=== PATIENT | female | born 1990 | race Caucasian/White ===

== ENCOUNTER → 2024-08-14 16:00 | Outpatient (BNVA) | payer BC, SELFPAY | PROVIDERS: Visit Provider Nurse Practitioner | DX: J02.9 Acute pharyngitis, unspecified (principal) | CPT/HCPCS: 87880 ==

== ENCOUNTER 2024-10-13 22:13 | Emergency (ER) | payer BC, SELFPAY ==
[2024-10-13 22:15] VITALS: PULSE 90; O2SAT 97
[2024-10-13 22:19] VITALS: BP 139/96; PULSE 90; O2SAT 97
--- NOTE | 2024-10-13 22:20 | CTR_ITS ---
PROCEDURE INFORMATION: Exam: CT Head Without And With Contrast Exam date and time: 10/13/2024 10:38 PM Age: 33 years old Clinical indication: Stroke-like symptoms; Altered mental status/memory loss and dizziness/giddiness and speech disturbance and vomiting; Additional info: Known tumor, R/O bleed first TECHNIQUE: Imaging protocol: Computed tomography of the head without and with contrast. Radiation optimization: All CT scans at this facility use at least one of these dose optimization techniques: automated exposure control; mA and/or kV adjustment per patient size (includes targeted exams where dose is matched to clinical indication); or iterative reconstruction. Contrast material: OMNI 350; Contrast volume: 75 ml; Contrast route: INTRAVENOUS (IV); COMPARISON: No relevant prior studies available. RADIATION DOSE METRICS: Total DLP (mGy-cm): 1969.78 FINDINGS: Brain: Large cystic and solid mass centered in the left basal ganglia. Geographic mass-effect on the adjacent parenchyma. Lesion spans about 3.6 cm x 3.6 cm x 3.4 cm. The medial, solid portion of the mass is well-circumscribed with some heterogeneity but predominantly hyperattenuating. The outer cystic portion of the mass demonstrates peripheral enhancement. [id number] midline shift about 4 mm. Shine matter and white matter interfaces are preserved. Cerebral ventricles: The bilateral temporal horns of the lateral ventricles are both slightly dilated, but no significant hydrocephalus. There is mass effect on the 3rd ventricle primarily. Paranasal sinuses: Visualized sinuses are unremarkable. No fluid levels. Mastoid air cells: Visualized mastoid air cells are well aerated. Bones: Unremarkable. No acute fracture. Soft tissues: Unremarkable. CT/CT head wo/w con [id number] IMPRESSION: 1. Cystic and solid intracranial neoplasm centered in the left basal ganglia with regional mass effect and midline shift changes as described. 2. Hyperattenuating solid portion of the mass may represent some internal hemorrhage, but the solid portion of the lesion maintains a circumscribed margin. 3. Early, minor hydrocephalus features. ASSESSMENT: ASPECTS ([place] Stroke Program Early CT Score) is 10.
[2024-10-13 22:21] VITALS: BP 139/96; PULSE 89; RESP 20; TEMP 36.6; O2SAT 98; BMI 26.9
--- NOTE | 2024-10-13 22:38 | ED_ITS ---
HPI - Neuro Symptoms/Deficit 2 General: Chief Complaint: Neuro Symptoms/Deficit Stated Complaint: tumor, vommiting, cant lift right side, Time Seen by Provider: 10/13/24 22:15 History of Present Illness: 33-year-old female with recently diagnos ed brain tumor. She was diagnosed at [facility] and sent to [facility] and treated by Dr. Soto. She was receiving steroids and they are planning on doing the surgery. She had had speech difficulties facial droop and right-sided weakness initially and those had improved and she was walking. They had sent her home today to finish out steroids and plan on surgery. I had made it almost home when suddenly she became very angry and her face started drooping and her right side went weak again and she vomited. Symptoms are present now. said this was very similar to what it was before they started the steroids. Related Data Home Medications Medication Instructions Recorded Confirmed propranolol 10 mg tablet 10 mg PO ONCE PRN 12/22/21 08/14/24 Previous Rx's Medication Instructions Recorded azithromycin 500 mg tablet 500 mg PO DAILY 5 days #5 tabs 08/14/24 Allergies Allergy/AdvReac Type Severity Reaction Status Date / Time Cephalosporins Allergy ALGY-Hives Verified 10/13/24 22:26 Penicillins Allergy ALGY-Hives Verified 10/13/24 22:26 Review of Systems 2 General: Reports: ROS unobtainable due to medical condition [facility] ED 2 PFSH: Social History Smoking and tobacco/nicotine status: never used tobacco/nicotine Physical Exam 2 Narrative: EXAM NARRATIVE: General: Alert, no acute distress. Skin: Warm, dry. Head: Normocephalic, atraumatic. Neck: Supple, trachea midline. Eye: Extraocular movements are intact. Ears, nose, mouth and throat: mucosa moist. Cardiovascular: Regular, Normal peripheral perfusion. Respiratory: Lungs are clear to auscultation, respirations are non-labored, breath sounds are equal, Symmetrical chest wall expansion. Gastrointestinal: Soft, Nontender, Non distended Musculoskeletal: Normal ROM, no deformity. Neurological: Patient has slurred speech difficulty speaking, right-sided facial droop and right-sided arm and leg weakness. Psychiatric: Cooperative, appropriate mood & affect. Course 2 Vital Signs: Vital signs: Vital Signs Temperature 97.8 F 10/13/24 22:21 Pulse Rate 73 10/13/24 23:37 Respiratory Rate 20 H 10/13/24 22:21 Blood Pressure 143/90 10/13/24 22:49 Pulse Oximetry 98 10/13/24 23:37 MDM - Neuro Symptoms/Deficit Medical Decision Making Medical decision making: Differential diagnosis for patient with focal neurologic deficit(s) includes but not limited to and based on the above HPI, review of systems and physical exam: ischemic stroke, hemorrhagic stroke and embolic stroke secondary to atrial fibrillation), TIA, Mann's palsey, metabolic encephalopathy with previous stroke. Orders placed to evaluate differential diagnosis based on the above differential, HPI and physical exam Lab Review: Laboratory results were reviewed and interpreted by myself the emergency room physician. Patient has some leukocytosis with a white count of 21,000. Likely secondary to steroids. No anemia. No renal failure. CT of the head shows a cystic solid neoplasm with mass effect and midline shift. There is a hyperattenuating solid portion of the mass that appears to be a new hemorrhage. I actually reviewed films that were taken at [facility] and this central area was not present at that time. I do believe this is an active bleed. Particularly given the rapid reonset of the patient's symptoms. Consultation: I spoke with Dr. Soto the neurosurgeon that is taking care of her at [facility]. He has recommended transfer ER to ER to [facility]. Consultation: I spoke with Dr. Mendoza at [facility] ER. She is excepting the patient ER to ER. Given the rapid onset of this and the nature of this being a bleed I believe this needs rapid transfer to [facility]. This will require air VAC. Assessment and plan: Brain mass Intracranial hemorrhage Right-sided weakness Aphasia ?10 mg IV Decadron and 2 g IV Keppra in the emergency room - Discussed findings and plan with patient and family. Answered any questions. - All laboratory values were reviewed and interpreted personally by myself, the ER physician - All imaging was reviewed and interpreted personally by myself, the ER physician. - Evaluation and treatment of this problem were appropriate in the emergency setting Lab Data 10/13/24 22:24 10/13/24 22:[address] 12/05/24 22:20 IMPRESSION: 1. Cystic and solid intracranial neoplasm centered in the left basal ganglia with regional mass effect and midline shift changes as described. 2. Hyperattenuating solid portion of the mass may represent some internal hemorrhage, but the solid portion of the lesion maintains a circumscribed margin. 3. Early, minor hydrocephalus features. ASSESSMENT: ASPECTS ([place] Stroke Program Early CT Score) is 10. Laboratory Results WBC 21.53 10^3/uL (3.29-11.43) H 10/13/24 22:24 RBC 4.69 10^6/uL (3.85-5.65) 10/13/24 22:24 Hgb 13.10 g/dL (11.27-16.99) 10/13/24 22:24 Hct 39.6 % (36-47) 10/13/24 22:24 MCV 84.4 fl (85-98) L 10/13/24 22:24 MCH 27.9 pg (27-33) 10/13/24 22:24 MCHC 33.1 g/dL (30-55) 10/13/24 22:24 RDW 13.0 % (12.1-15.1) 10/13/24 22:24 Plt Count 403 10^3/cmm (157-399) H 10/13/24 22:24 MPV 10.3 fL (7.4-10.4) 10/13/24 22:24 Neut % (Auto) 87.5 % 10/13/24 22:24 Lymph % (Auto) 6.5 % 10/13/24 22:24 Moody % (Auto) 5.3 % 10/13/24 22:24 Eos % (Auto) 0.0 % 10/13/24 22:24 Baso % (Auto) 0.1 % 10/13/24 22:24 Neut # (Auto) 18.84 10^3/uL (1.8-7.7) H 10/13/24 22:24 Lymph # (Auto) 1.4 10^3/uL (0.8-4.8) 10/13/24 22:24 Moody # (Auto) 1.1 10^3/uL (0.2-0.9) H 10/13/24 22:24 Eos # (Auto) 0.0 10^3/uL (0.0-0.8) 10/13/24 22:24 Baso # (Auto) 0.0 10^3/uL (0.0-0.1) 10/13/24 22:24 Nucleated RBC % (auto) 0 % 10/13/24 22:24 Nucleated RBCs # 0.0 /100WBC 10/13/24 22:24 Sodium 137 mmol/L (136-145) 10/13/24 22:24 Potassium 4.2 mmol/L (3.5-5.1) 10/13/24 22:24 Chloride 101 mmol/L (98-107) 10/13/24 22:24 Carbon Dioxide 24 mmol/L (22-29) 10/13/24 22:24 Anion Gap 16.2 (5-19) 10/13/24 22:24 BUN 13 mg/dL (6-20) 10/13/24 22:24 Creatinine 0.6 mg/dL (0.5-0.9) 10/13/24 22:24 GFR Calculation 113.8 mL/min (90-130) 10/13/24 22:24 Glucose 127 mg/dL (65-115) H 10/13/24 22:24 POC Glucose 127 mg/dL (70-110) H 10/13/24 22:31 Calculated Osmolality 286 mOsm/kg (285-295) 10/13/24 22:24 Calcium 9.7 mg/dL (8.5-10.5) 10/13/24 22:24 Total Bilirubin 0.3 mg/dL (0.15-1.2) 10/13/24 22:24 AST 17 U/L (0-32) 10/13/24 22:24 ALT 21 U/L (0-33) 10/13/24 22:24 Alkaline Phosphatase 92 U/L (35-105) 10/13/24 22:24 Total Protein 7.8 g/dL (6.6-8.7) 10/13/24 22:24 Albumin 4.7 g/dL (3.5-5.2) 10/13/24 22:24 Globulin 3.1 g/dL (1.3-4.6) 10/13/24 22:24 All radiology interpretation(s) finalized by discharge Discharge Plan Discharge Patient Disposition: Xfer Short-Term Hosp Clinical Impression: Intracranial mass, Intracranial hemorrhage, Right sided weakness, Aphasia Condition: Stable Coding Level of Care Code ED Client Experience Specialist for Eric Sheppard
[2024-10-13 22:40] LABS: Basophils % 0.1 %; Hematocrit 39.6 % (36-47); Lymphocytes # 1.4 10^3/uL (0.8-4.8); Lymphocytes % 6.5 %; Mean Corpuscular HGB Conc 33.1 g/dL (30-55); Mean Corpuscular Hemoglobin 27.9 pg (27-33); Mean Corpuscular Volume 84.4 fl (85-98); Mean Platelet Volume 10.3 fL (7.4-10.4); Monocytes # 1.1 10^3/uL (0.2-0.9); Monocytes % 5.3 %; Neutrophils # 18.84 10^3/uL (1.8-7.7); Neutrophils % 87.5 %; Nucleated Red Blood Cells % 0 %; Platelet Count 403 10^3/cmm (157-399); Red Blood Count 4.69 10^6/uL (3.85-5.65); White Blood Count 21.53 10^3/uL (3.29-11.43)
[2024-10-13] MEDS: iohexol 350 mg/mL 500 mL Btl (per mL) IV (22:42)
[2024-10-13 22:49] VITALS: BP 143/90; PULSE 86; O2SAT 100
[2024-10-13 23:01] LABS: Glucose Point of Care 127 mg/dL (70-110)
[2024-10-13 23:02] LABS: Alanine Aminotransferase 21 U/L (0-33); Albumin Level 4.7 g/dL (3.5-5.2); Alkaline Phosphatase 92 U/L (35-105); Anion Gap 16.2 (5-19); Aspartate Amino Transferase 17 U/L (0-32); Blood Urea Nitrogen 13 mg/dL (6-20); Calcium 9.7 mg/dL (8.5-10.5); Carbon Dioxide 24 mmol/L (22-29); Chloride 101 mmol/L (98-107); Creatinine Clr Calc Pharmacy 117.2051; Globulin 3.1 g/dL (1.3-4.6); Glomerular Filtration Rate 113.8 mL/min (90-130); Glucose 127 mg/dL (65-115); Osmolality Calculated 286 mOsm/kg (285-295); Potassium 4.2 mmol/L (3.5-5.1); Sodium 137 mmol/L (136-145); Total Bilirubin 0.3 mg/dL (0.15-1.2); Total Protein 7.8 g/dL (6.6-8.7)
[2024-10-13] MEDS: levETIRAcetam 2,000 MG/200 ML PREMIX 400 MG IV (23:10)
[2024-10-13] MEDS: dexamethasone 10 mg/mL INJ IVP (23:13)
[2024-10-13 23:37] VITALS: PULSE 73; O2SAT 98
[2024-10-13 23:54] VITALS: BP 120/87; PULSE 89; RESP 16; O2SAT 100
== END 2024-10-13 23:55 | disposition short-term general hospital (02) ==
PROVIDERS: Emergency Provider Emergency Medicine
DX: D49.6 Neoplasm of unspecified behavior of brain (principal); I62.9 Nontraumatic intracranial hemorrhage, unspecified; R47.01 Aphasia; R53.1 Weakness
CPT/HCPCS: 36415; 36416; 70470; 80053; 82962; 85025; 96374; 96375; 99285; J1100; J1953

== ENCOUNTER 2024-11-30 08:55 | Outpatient (RCR) | payer BC, SELFPAY | END 2024-12-09 23:59 | disposition home or self-care (01) | LOC: SST 08:55 | PROVIDERS: Visit Provider Internal Medicine | DX: R47.01 Aphasia (principal) | CPT/HCPCS: 92507; 96105; 97167 ==

== ENCOUNTER 2024-12-10 06:30 | Outpatient (RCR) | payer BC, SELFPAY | END 2025-01-06 23:59 | disposition home or self-care (01) | LOC: SST 06:30 | PROVIDERS: Visit Provider Internal Medicine | DX: R47.01 Aphasia (principal) | CPT/HCPCS: 92507 ==

== ENCOUNTER 2024-12-10 06:30 | Outpatient (RCR) | payer BC, SELFPAY | END 2025-01-06 23:59 | disposition home or self-care (01) | LOC: SOT 06:30 | PROVIDERS: Visit Provider Internal Medicine | DX: G81.91 Hemiplegia, unspecified affecting right dominant side (principal) | CPT/HCPCS: 97112 ==

== ENCOUNTER 2025-02-18 12:57 | Emergency (ER) | payer BC, SELFPAY ==
[2025-02-18] VITALS (17 sets, daily range): BP systolic 113–187; BP diastolic 75–161; PULSE 73–119; RESP 14–28; TEMP 36.7; O2SAT 98–100
[2025-02-18] MEDS: etomidate 2 mg/mL INJ SDV 10 mL 10 MG IVP (13:08)
[2025-02-18] MEDS: succinylcholine 20 mg/mL SDV 10mL 70 MG IVP (13:09)
--- NOTE | 2025-02-18 13:10 | PC.PHAR ---
called [facility] pharmacy to confirm meds, everything they have is all short term rx's nothing reoccurring on a monthly basis just nausea meds and most recently dexamethasone
--- NOTE | 2025-02-18 13:21 | XRR_ITS ---
PROCEDURE INFORMATION: Exam: XR Chest Exam date and time: 02/18/2025 1:25 PM Age: 34 years old Clinical indication: Device placement; Ett placement (vent status); Additional info: Ett placement; Found unresponsive; Respiratory distress TECHNIQUE: Imaging protocol: Radiologic exam of the chest. Views: 1 view. COMPARISON: No relevant prior studies available. FINDINGS: Tubes, catheters and devices: Endotracheal tube is visualized with its tip approximately 5 mm above the level of the ramya. Lungs: Patchy interstitial and airspace opacities [id number]. Consolidation of the left lung base. Pleural spaces: Small left pleural effusion. No pneumothorax. Heart/Mediastinum: The cardiomediastinal silhouette is unremarkable. Bones/joints: Unremarkable. XR/XR chest 1V portable [id number] IMPRESSION: 1. Patchy bilateral airspace opacities may represent atelectasis although superimposed infectious etiology is not excluded. 2. Left consolidation concerning for infectious pneumonia and/or atelectasis. Aspiration pneumonia is not excluded. 3. Probable trace left pleural effusion. 4. Endotracheal tube tip is noted approximately 5 mm above the level of the ramya. Recommend interval retraction as clinically indicated.
--- NOTE | 2025-02-18 13:21 | CTR_ITS ---
PROCEDURE INFORMATION: Exam: CT Head Without Contrast Exam date and time: 02/18/2025 1:38 PM Age: 34 years old Clinical indication: Syncope and collapse; Prior surgery; Surgery date: 6+ months; Surgery type: Brain tumor? ? ; Additional info: Unresponsive. Unequal pupils. L4, R 3 TECHNIQUE: Imaging protocol: Computed tomography of the head without contrast. Radiation optimization: All CT scans at this facility use at least one of these dose optimization techniques: automated exposure control; mA and/or kV adjustment per patient size (includes targeted exams where dose is matched to clinical indication); or iterative reconstruction. COMPARISON: CT head wo/w con [id number] 10/13/2024 10:38 PM RADIATION DOSE METRICS: Total DLP (mGy-cm): 1801.78 FINDINGS: Brain: Redemonstrated cystic and solid mass centered in the left basal ganglia with similar to slightly increased associated mass effect measuring approximately 3.4 x 3.6 x 3.8 cm. There is approximately 4 mm of rightward midline shift. There has been interval significant decrease in hyper density with scattered small areas of internal hypoattenuation. There is new encephalomalacia in the left temporal and frontoparietal lobes. No cerebellar tonsillar herniation. Cerebral ventricles: There is increased dilatation of the temporal horns of the bilateral lateral ventricles as well as slight increased prominence of the frontal horns of the bilateral lateral ventricles. Similar mass effect on the 3rd ventricle. Paranasal sinuses: Mild bilateral maxillary paranasal mucosal sinus thickening. Mastoid air cells: Visualized mastoid air cells are well aerated. Bones: Status post left frontotemporal craniotomy. Soft tissues: Unremarkable. CT/CT head wo con* [id number] IMPRESSION: 1. Redemonstrated hypodense mass centered around the left basal ganglia with new postsurgical changes from left frontotemporal craniotomy. Hypodensity centered around the mass and extending to the left temporal lobe. Differential diagnosis includes worsening perilesional vasogenic edema however given postsurgical changes findings are favored to represent encephalomalacia. Interval decrease in previously demonstrated hyperdense component medially with scattered foci of central hyperdensity which may be lesional calcification and/or hemorrhagic contents/debris. No cerebellar tonsillar herniation. 2. There is slightly increasing ventricular dilatation and/or hydrocephalus most prominently involving the temporal horns of the bilateral lateral ventricles.
--- NOTE | 2025-02-18 13:24 | W.ED.AMS ---
HPI - Altered Mental Status General: Chief Complaint: Altered Mental Status Stated Complaint: unresponsive Time Seen by Provider: 02/18/25 13:20 Source: EMS Mode of arrival: EMS Limitations: altered mental status History of Present Illness: Patient arrives with Igel in place. EMS had given fentanyl ketamine and rocuronium before arrival. Of note patient is having some focal response rocuronium was restarted to wear off some. EMS reports they attempted intubation multiple times that she was difficult so they eventually placed an i-gel. Patient has some crepitus to the neck concerning for tracheal injury. Reportedly patient was at home and suddenly became unresponsive. This was witnessed. On EMS arrival she was apparently still breathing and still had a pulse but they do not bring an adequate and proceeded to start with intubation. No history of vomiting. No history of O2 sat prior to intubation attempts. Related Data Home Medications ?Medication ?Instructions ?Recorded ?Confirmed dexamethasone 2 mg tablet 2 mg PO BID 02/18/25 02/18/25 dexamethasone 4 mg tablet 4 mg PO TID mailignant neoplasm 02/18/25 02/18/25 famotidine 20 mg tablet 20 mg PO BID 02/18/25 02/18/25 phenytoin sodium extended 100 mg 100 mg PO TID 02/18/25 02/18/25 capsule Allergies Allergy/AdvReac Type Severity Reaction Status Date / Time Cephalosporins Allergy ALGY-Hives Verified 10/13/24 22:26 Penicillins Allergy ALGY-Hives Verified 10/13/24 22:26 Review of Systems General: Reports: ROS unobtainable due to medical condition PFS ED PFSH: Social History Smoking and tobacco/nicotine status: never used tobacco/nicotine Physical Exam Const: COMMON NORMALS: no acute distress, alert and well nourished EXAM LIMITATIONS: altered mental status (came in after fent, ketamine, maynor. with LMA in place. ) GENERAL APPEARANCE: well kempt and well developed HENMT: COMMON NORMALS: normocephalic, atraumatic, external ears normal and moist oral mucous membranes HEAD & SCALP: normocephalic and atraumatic EXTERNAL EAR: Yes external ears normal Eye: COMMON NORMALS: Equal, round and reactive pupils present, EOMs intact bilaterally and conjunctivae normal CONJUNCTIVA: Yes conjunctivae normal PUPIL: Yes Equal, round and reactive pupils present Neck/C-Spine: COMMON NORMALS: full ROM, no lymphadenopathy and supple Chest: CHEST: Yes Symmetrical chest wall rise and No Surgical scars present (Chest) Resp: COMMON NORMALS: clear to auscultation bilaterally (ventilated) AUSCULTATION: clear to auscultation bilaterally (ventilated) Cardio: COMMON NORMALS: regular rhythm, S1 normal heart sound present, S2 normal heart sound present, No gallops present (Cardio), No clicks present (Cardio), No murmurs present (Cardio) and No rub (Cardio) RATE: tachycardic RHYTHM: regular rhythm HEART SOUNDS: S1 normal heart sound present, S2 normal heart sound present and no murmurs PERIPHERAL PULSES: other (Radial pulses 2+ and symmetric) GI: COMMON NORMALS: Soft to palpation, non-tender and no masses INSPECTION: Yes abdominal distension (mild protuberance but soft) PALPATION: Yes Soft to palpation, No Guarding due to palpation present (GI) and No Rebound tenderness present : COMMON NORMALS: Yes no CVA tenderness BLADDER/KIDNEY EXAM: Yes no CVA tenderness EXTERNAL FEMALE EXAM: Yes normal appearance of the urethra and Yes other (Exam done due to nurses actively passing Springer. External vulva ap) Back/Pelvis: COMMON NORMALS: no CVA tenderness Extremity: COMMON NORMALS: normal to inspection, full ROM, capillary refill normal and no clubbing, cyanosis or edema Neuro: SENSORIUM/ORIENTATION: Yes alert Psych: APPEARANCE: Yes well kempt Skin: COMMON NORMALS: no rashes or lesions noted, no wounds, turgor normal and no jaundice GENERAL SKIN EXAM: no rashes or lesions noted and turgor normal Procedures Intubation sedative: Etomidate Mg Given: 10 paralytic: Succinylcholine Mg Given: 70 Laryngoscope: fiber optic video scope Assist Device Used: fiber optic device ET Tube Size: 7 Tube Secured Depth (cm): 23 Tube Secured Location: teeth Tube Placement Confirmation: visualized tube passing through cords, equal breath sounds bilaterally, no breath sounds over epigastrium and confirmation by capnometry Patient Tolerated Procedure: well Intubation Complications: difficult intubation Additional Comments: Initially looked with MAC for an bougie. Was unable to get bougie at the cords. Once I bring to the blade with glide scope was placed in. Still could not see the cords we could see the arytenoids and then once the tube was placed through could then visualize the cords. Course Vital Signs: Vital signs: Vital Signs Temperature 98.1 F 02/18/25 13:00 Pulse Rate 73 02/18/25 13:00 Respiratory Rate 14 02/18/25 16:06 Blood Pressure 142/96 02/18/25 13:00 Pulse Oximetry 98 02/18/25 13:00 Oxygen Delivery Me thod Mechanical Ventil ation 02/18/25 13:00 Fraction of Inspir ed Oxygen 60 02/18/25 16:06 MDM - Altered Mental Status Medical Decision Making Patient was in after what sounds like possibly a seizure after further investigation and talking with the . She had attempted the patient in the field with RSI meds of exam was very limited on arrival and patient was on the LMA despite of already having fentanyl and rocuronium and ketamine. Patient was then intubated with a glide scope. 7 oh tube initially 23 at the lip and then reduced to 22. Radiologist comments that the ramya is 5 mm below the tube however on my measurements it is 2 cm and patient has bilateral breath sounds. Will leave the tube in place at 22 cm at the teeth. Patient phenytoin level was low so added Cerebyx and gave a dose of Keppra. No further seizure activity seen. Patient has made a purposeful movement with her left arm. Systolic blood pressure did spike for a little bit and so she was given fentanyl 1 time as remained comfortable. Patient is on a minimal dose of propofol at this time. Patient had missed 2 doses of her dexamethasone at home so I gave 4 mg of Decadron IV. Discussed the case with Dr. Velásquez at outside [facility] and he will be excepted to the ICU there. Awaiting air ambulance at this time. Differential Diagnosis Likely altered mental status Medical Records I reviewed the patient's medical records. Lab Data I reviewed the patient's lab results. 02/18/25 13:28 02/18/25 13:28 Radiology Impressions Chest X-Ray 02/18/25 13:21 IMPRESSION: 1. Patchy bilateral airspace opacities may represent atelectasis although superimposed infectious etiology is not excluded. 2. Left consolidation concerning for infectious pneumonia and/or atelectasis. Aspiration pneumonia is not excluded. 3. Probable trace left pleural effusion. 4. Endotracheal tube tip is noted approximately 5 mm above the level of the ramya. Recommend interval retraction as clinically indicated. ADDENDUM: 02/18/25 1420 COMMENT: THIS REPORT CONTAINS FINDINGS THAT MAY BE CRITICAL TO PATIENT CARE. The exam findings were verbally communicated by me to KIESHA WANG via telephone conference at 2:18 PM CDT on 02/18/2025. The findings were acknowledged and understood. Head CT 02/18/25 13:21 IMPRESSION: 1. Redemonstrated hypodense mass centered around the left basal ganglia with new postsurgical changes from left frontotemporal craniotomy. Hypodensity centered around the mass and extending to the left temporal lobe. Differential diagnosis includes worsening perilesional vasogenic edema however given postsurgical changes findings are favored to represent encephalomalacia. Interval decrease in previously demonstrated hyperdense component medially with scattered foci of central hyperdensity which may be lesional calcification and/or hemorrhagic contents/debris. No cerebellar tonsillar herniation. 2. There is slightly increasing ventricular dilatation and/or hydrocephalus most prominently involving the temporal horns of the bilateral lateral ventricles. ADDENDUM: 02/18/25 1411 COMMENT: THIS REPORT CONTAINS FINDINGS THAT MAY BE CRITICAL TO PATIENT CARE. The exam findings were verbally communicated by me to KIESHA WANG via telephone conference at 2:11 PM CDT on 02/18/2025. The findings were acknowledged and understood. Laboratory Results WBC 17.68 10^3/uL (3.29-11.43) H 02/18/25 13:28 RBC 5.46 10^6/uL (3.85-5.65) 02/18/25 13:28 Hgb 14.00 g/dL (11.27-16.99) 02/18/25 13:28 Hct 44.7 % (36-47) 02/18/25 13:28 MCV 81.9 fl (85-98) L 02/18/25 13:28 MCH 25.6 pg (27-33) L 02/18/25 13:28 MCHC 31.3 g/dL (30-55) 02/18/25 13:28 RDW 17.2 % (12.1-15.1) H 02/18/25 13:28 Plt Count 361 10^3/cmm (157-399) 02/18/25 13:28 MPV 9.5 fL (7.4-10.4) 02/18/25 13:28 Neut % (Auto) 67.5 % 02/18/25 13:28 Lymph % (Auto) 20.5 % 02/18/25 13:28 [place] % (Auto) 9.6 % 02/18/25 13:28 Eos % (Auto) 0.3 % 02/18/25 13:28 Baso % (Auto) 0.3 % 02/18/25 13:28 Neut # (Auto) 11.92 10^3/uL (1.8-7.7) H 02/18/25 13:28 Lymph # (Auto) 3.6 10^3/uL (0.8-4.8) 02/18/25 13:28 [place] # (Auto) 1.7 10^3/uL (0.2-0.9) H 02/18/25 13:28 Eos # (Auto) 0.1 10^3/uL (0.0-0.8) 02/18/25 13:28 Baso # (Auto) 0.1 10^3/uL (0.0-0.1) 02/18/25 13:28 Nucleated RBC % (auto) 0 % 02/18/25 13:28 Nucleated RBCs # 0.0 /100WBC 02/18/25 13:28 PT 12.60 SECONDS (12.1-14.9) 02/18/25 13:28 INR 0.88 (0.8-1.2) 02/18/25 13:28 APTT 19.9 SECONDS (23.9-36.7) L 02/18/25 13:28 Specimen Type Arterial 02/18/25 13:55 Sample Site Radial, right 02/18/25 13:55 ABG pH 7.38 (7.35-7.45) 02/18/25 13:55 ABG pCO2 45.2 mmHg (35-45) H 02/18/25 13:55 ABG pO2 240.0 mmHg (80.0-100.0) H 02/18/25 13:55 ABG PO2/FiO2 Ratio 300 02/18/25 13:55 ABG HCO3 26.8 mmol/L (22-26) H 02/18/25 13:55 ABG Base Excess 1.2 mmol/L (-2.0-2.0) 02/18/25 13:55 Ashwin Test Pos 02/18/25 13:55 Hematocrit 44.3 % (37-47) 02/18/25 13:55 Hgb O2 Saturation 98.2 % (95-100) 02/18/25 13:55 Carboxyhemoglobin 0.9 %THgb (0.4-20.1) 02/18/25 13:55 Methemoglobin 1.0 % (0.4-1.5) 02/18/25 13:55 Total Hemoglobin 14.4 g/dL (12-16) 02/18/25 13:55 O2 Delivery Device Vent 02/18/25 13:55 FiO2 80.0 % 02/18/25 13:55 Tidal Volume 0.35 02/18/25 13:55 PEEP 5.0 cmH20 02/18/25 13:55 Strap Machine Operator Automatic ID glc 02/18/25 13:55 Sodium 135 mmol/L (136-145) L 02/18/25 13:28 Potassium 3.7 mmol/L (3.5-5.1) 02/18/25 13:28 Chloride 97 mmol/L (98-107) L 02/18/25 13:28 Carbon Dioxide 23 mmol/L (22-29) 02/18/25 13:28 Anion Gap 18.7 (5-19) 02/18/25 13:28 BUN 10 mg/dL (6-20) 02/18/25 13:28 Creatinine 0.5 mg/dL (0.5-0.9) 02/18/25 13:28 GFR Calculation 139.6 mL/min (90-130) H 02/18/25 13:28 Glucose 172 mg/dL (65-115) H 02/18/25 13:28 Calculated Osmolality 283 mOsm/kg (285-295) L 02/18/25 13:28 Lactic Acid 1.9 mmol/L (0.5-2.2) 02/18/25 13:28 Calcium 9.1 mg/dL (8.5-10.5) 02/18/25 13:28 Total Bilirubin 0.3 mg/dL (0.15-1.2) 02/18/25 13:28 AST 17 U/L (0-32) 02/18/25 13:28 ALT 49 U/L (0-33) H 02/18/25 13:28 Alkaline Phosphatase 62 U/L (35-105) 02/18/25 13:28 Creatine Kinase 55 U/L (26-192) 02/18/25 13:28 NT-Pro-B Natriuret Pep < 36 pg/mL (0-125) 02/18/25 13:28 Total Protein 7.3 g/dL (6.6-8.7) 02/18/25 13:28 Albumin 4.4 g/dL (3.5-5.2) 02/18/25 13:28 Globulin 2.9 g/dL (1.3-4.6) 02/18/25 13:28 Procalcitonin 0.04 ng/mL (0-0.5) 02/18/25 13:28 HCG, Qual Negative (Negative) 02/18/25 13:28 Urine Color Yellow (Yellow) 02/18/25 13:28 Urine Appearance Clear (CLEAR) 02/18/25 13:28 Urine pH 7 (5-7) 02/18/25 13:28 Ur Specific [place] 1.005 (1.005-1.030) 02/18/25 13:28 Urine Protein Neg (Negative) 02/18/25 13:28 Urine Glucose (UA) Norm (Normal) 02/18/25 13:28 Urine Ketones Negative (Negative) 02/18/25 13:28 Urine Blood Neg (Negative) 02/18/25 13:28 Urine Nitrate Negative (Negative) 02/18/25 13:28 Urine Bilirubin Neg (Negative) 02/18/25 13:28 Urine Urobilinogen Norm mg/dL (Negative) 02/18/25 13:28 Ur Leukocyte Esterase Negative (Negative) 02/18/25 13:28 Amorphous Sediment Not Reportable 02/18/25 13:28 Salicylates < 0.3 mg/dL (3-10) L 02/18/25 13:28 Urine Opiates Screen Negative ng/mL (Negative) 02/18/25 13:28 Acetaminophen < 5.0 ug/mL (10-30) L 02/18/25 13:28 Ur Barbiturates Screen Positive ng/mL (Negative) H 02/18/25 13:28 Phenytoin 5.7 ug/mL (10-20) L 02/18/25 13:28 Ur Phencyclidine Scrn Negative ng/mL (Negative) 02/18/25 13:28 Ur Amphetamines Screen Negative ng/mL (Negative) 02/18/25 13:28 U Benzodiazepines Scrn Negative ng/mL (Negative) 02/18/25 13:28 Urine Cocaine Screen Negative ng/mL (Negative) 02/18/25 13:28 U Marijuana (THC) Screen Negative ng/mL (Negative) 02/18/25 13:28 Ethyl Alcohol < 10 mg/dL (0-10) 02/18/25 13:28 All radiology interpretation(s) finalized by discharge ED provider radiology interpretation(s): Obvious postsurgical changes with tumor bed in the left cerebrum. See radiology read for more details. Critical Care Time Critical Care Time: Critical Care Time: Yes Total Critical Care Time: 48 Attestation: This case had a high probability of a clinically significant, sudden, or life threatening deterioration of this patient's condition which required my full and direct attention, intervention and personal management. Discharge Plan Discharge Patient Disposition: Xfer Short-Term Hosp Clinical Impression: Altered mental status, Seizure, GBM (glioblastoma multiforme), Difficult intubation Condition: Stable Prescriptions: No Action phenytoin sodium extended 100 mg capsule 100 mg PO TID famotidine 20 mg tablet 20 mg PO BID dexamethasone 2 mg tablet 2 mg PO BID dexamethasone 4 mg tablet 4 mg PO TID Referrals: Bria Chan MD [Primary Care Provider] - Patient Instructions: Altered Mental Status (ED) Print Language: Polish Coding Level of Care Code ED Junior Graphic Designer for Eric Sheppard
[2025-02-18] MEDS: propofol 1,000 MG/100 ML INJ 2.52 MG IV (13:28)
[2025-02-18 13:37] LABS: Basophils # 0.1 10^3/uL (0.0-0.1); Basophils % 0.3 %; Eosinophils # 0.1 10^3/uL (0.0-0.8); Eosinophils % 0.3 %; Hematocrit 44.7 % (36-47); Lymphocytes # 3.6 10^3/uL (0.8-4.8); Lymphocytes % 20.5 %; Mean Corpuscular HGB Conc 31.3 g/dL (30-55); Mean Corpuscular Hemoglobin 25.6 pg (27-33); Mean Corpuscular Volume 81.9 fl (85-98); Mean Platelet Volume 9.5 fL (7.4-10.4); Monocytes # 1.7 10^3/uL (0.2-0.9); Monocytes % 9.6 %; Neutrophils # 11.92 10^3/uL (1.8-7.7); Neutrophils % 67.5 %; Nucleated Red Blood Cells % 0 %; Platelet Count 361 10^3/cmm (157-399); Red Blood Count 5.46 10^6/uL (3.85-5.65); Red Cell Distribution Width 17.2 % (12.1-15.1); White Blood Count 17.68 10^3/uL (3.29-11.43)
[2025-02-18 13:38] LABS: Add Urine Microscopic? NO
[2025-02-18 13:41] LABS: Bilirubin Urine Neg (Negative); Blood Urine Neg (Negative); Glucose Urine UA Norm (Normal); HCG Qualitative Urine. Negative (Negative); Ketones Urine Negative (Negative); Leukocyte Esterase Urine Negative (Negative); Nitrate Urine Negative (Negative); Protein Urine Neg (Negative); Specific Gravity, Urine 1.005 (1.005-1.030); Urine Appearance Clear (CLEAR); Urine Color Yellow (Yellow); Urobilinogen Urine Norm (Negative); pH Urine 7 (5-7)
[2025-02-18 13:42] LABS: Charge for UA Resulting for Rev
[2025-02-18 13:49] LABS: Amphetamines Screen Urine Negative (Negative); Barbiturates Screen Urine Positive (Negative); Benzodiazepines Screen Urine Negative (Negative); Cocaine Screen Urine Negative (Negative); Opiate Screen Urine Negative (Negative); PCP Screen Urine Negative (Negative); THC Screen Urine Negative (Negative)
[2025-02-18 13:57] LABS: INR 0.88 (0.8-1.2)
[2025-02-18 13:58] LABS: Partial Thromboplastin Time 19.9 SECONDS (23.9-36.7)
[2025-02-18 14:00] LABS: Lactic Sepsis W/Reflex 1.9 mmol/L (0.5-2.2)
[2025-02-18 14:04] LABS: Phenytoin Dilantin 5.7 ug/mL (10-20)
[2025-02-18 14:07] LABS: ABG PCO2 45.2 mmHg (35-45); ABG PH Result 7.38 (7.35-7.45); Arterial Blood Gas Hematocrit 44.3 % (37-47); Base Excess ABG 1.2 mmol/L (-2.0-2.0); Blood Gas Allen Test Pos; Blood Gas Operator Identificat glc; Blood Gas Sample Site Radial, right; Blood Gas Sample Type Arterial; Blood Gas Tidal Volume 0.35; Carboxyhemoglobin 0.9 %THgb (0.4-20.1); HCO3 ABG 26.8 mmol/L (22-26); HGB O2 Sat 98.2 % (95-100); Oxygen Device VENT; PO2 FiO2 Ratio Arterial Blood 300; Total Hemoglobin 14.4 g/dL (12-16)
[2025-02-18 14:11] LABS: NT Pro B Type Natriuretic Pept < 36 pg/mL (0-125); Procalcitonin 0.04 ng/mL (0-0.5)
[2025-02-18 14:22] LABS: Alanine Aminotransferase 49 U/L (0-33); Albumin Level 4.4 g/dL (3.5-5.2); Alkaline Phosphatase 62 U/L (35-105); Anion Gap 18.7 (5-19); Aspartate Amino Transferase 17 U/L (0-32); Blood Urea Nitrogen 10 mg/dL (6-20); Calcium 9.1 mg/dL (8.5-10.5); Carbon Dioxide 23 mmol/L (22-29); Chloride 97 mmol/L (98-107); Creatine Phosphokinase 55 U/L (26-192); Creatinine Clr Calc Pharmacy 156.2372; Globulin 2.9 g/dL (1.3-4.6); Glomerular Filtration Rate 139.6 mL/min (90-130); Glucose 172 mg/dL (65-115); Osmolality Calculated 283 mOsm/kg (285-295); Potassium 3.7 mmol/L (3.5-5.1); Sodium 135 mmol/L (136-145); Total Bilirubin 0.3 mg/dL (0.15-1.2); Total Protein 7.3 g/dL (6.6-8.7)
[2025-02-18 14:23] LABS: Acetaminophen < 5.0 ug/mL (10-30); Alcohol Level < 10 mg/dL (0-10); Salicylate < 0.3 mg/dL (3-10)
[2025-02-18] MEDS: fentaNYL 50 mcg/mL INJ 2mL IVP (15:12)
[2025-02-18] MEDS: levETIRAcetam 1,000 MG/100 ML PREMIX 400 MG IV (15:15)
[2025-02-18] MEDS: fosphenytoin 1,000 MG in sodium chloride 0.9% (100 ml) 100 ML 200 MG IV (15:24)
[2025-02-18] MEDS: dexamethasone 4 mg/mL INJ IVP (16:42)
[2025-02-18] MEDS: FUROsemide 10 mg/mL SDV 4mL 40 MG IVP (17:16)
[2025-02-18] MEDS: dexamethasone 10 mg/mL INJ 6 MG IVP (17:16)
== END 2025-02-18 17:30 | disposition short-term general hospital (02) ==
PROVIDERS: Emergency Provider Emergency Medicine; PCP Family Medicine
DX: R41.82 Altered mental status, unspecified (principal); G40.909 Epilepsy, unspecified, not intractable, without status epilepticus; C71.9 Malignant neoplasm of brain, unspecified
CPT/HCPCS: 31500; 36600; 70450; 71045; 80053; 80185; 80306; 80307; 81003; 81025; 82550; 82805; 83605; 83880; 84145; 85025; 85610; 85730; 87040; 87070; 87086; 87205; 94002; 94799; 96365; 96367; 96375; 96376; 99285; 99291; 99292; J0330; J1100; J1940; J1953; J2704; J3010; J3490; Q2009